=== PATIENT | male | born 2000 | race Caucasian/White ===

== ENCOUNTER 2023-04-16 19:11 | Emergency (ER) | payer BC ==
[~2023-04-16] VITALS: Ht 177.8 cm; Wt 81.8 kg
[2023-04-16] MEDS ORDERED: Ketorolac 30 MG/ML VIAL IV ONE (20:00)
[2023-04-16] MEDS ORDERED: diphenhydrAMINE 50 MG/ML 1 ML VIAL IV ONE (20:00)
[2023-04-16] MEDS ORDERED: Magnesium Sulfate 4% 50 ML IV ONE (20:00)
[2023-04-16] MEDS ORDERED: Albuterol/Ipratropium 3 MG-0.5 MG/3 ML Neb Soln IH ONE (20:00)
[2023-04-16] MEDS ORDERED: NS 1,000 ML IV ONE (20:00)
[2023-04-16] MEDS ORDERED: dexAMETHasone 10 MG/ML VIAL IV ONE (20:00)
[2023-04-16 20:47] LABS: BASO % 0.6 % (0.0-2.0); EOS # 0.1 K/mm3 (0.0-0.7); EOS % 0.9 % (0.0-4.0); GRAN % 77.9 % (42.2-75.2); HEMATOCRIT 44.3 % (42.0-52.0); HEMOGLOBIN 15.3 g/dl (13.5-18.0); LYMPH # 0.4 K/mm3 (1.2-3.4); LYMPH % 6.8 % (20.0-51.0); MEAN CELL VOLUME 86 fl (80.0-100.0); MEAN CORPUSCULAR HEMOGLOBIN 30 pg (27-31); MEAN CORPUSCULAR HGB CONC 35 g/dl (33.0-37.0); MEAN PLATELET VOLUME 8.5 fl (7.4-10.4); MONO # 0.8 K/mm3 (0.1-0.6); PLATELET COUNT 337 K/mm3 (130-400); RED BLOOD COUNT 5.13 M/mm3 (4.20-5.60); REDCELL DISTRIBUTION WIDTH-CV 12.6 % (11.5-14.5)
[2023-04-16 21:07] LABS: ALBUMIN 4.5 gm/dL (3.5-5.0); CALCIUM 9.8 mg/dL (8.4-10.2); CREATININE, serum 0.96 mg/dL (0.72-1.25); POTASSIUM 3.6 mmol/L (3.5-4.5); TOTAL PROTEIN 7.7 gm/dL (6.2-8.1)
[2023-04-16] MEDS ORDERED: PROAIR HFA0.09 MG/AC IH (21:56)
[2023-04-16] MEDS ORDERED: PAXLOVID CO-PA1 EACH PO (21:56)
[2023-04-16 22:10] VITALS: BP 145/76; PULSE 109; TEMP 98.5
== END 2023-04-16 22:10 | disposition home or self-care (01) ==
LOC: COL.ER 19:11
PROVIDERS: Internal Medicine
DX: U07.1 COVID-19 (principal); J20.8 Acute bronchitis due to other specified organisms; G43.019 Migraine without aura, intractable, without status migrainosus; J45.909 Unspecified asthma, uncomplicated; E86.0 Dehydration; Z91.148 Patient's other noncompliance with medication regimen for other reason
CPT/HCPCS: J1100; J1200; J1885; J2765; J7030